=== PATIENT | male | born 2005 | race African-American/Black ===

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

== ENCOUNTER 2024-02-02 16:06 | Emergency (ER) | payer OTHER ==
[~2024-02-02] VITALS: Ht 172.7 cm; Wt 104.6 kg
[~2024-02-02 16:06] MED LIST changes: +CLAR10CA3 PO
[2024-02-02] MEDS: predniSONE 20 MG TAB PO ONE (19:15)
[2024-02-02] MEDS: ALBUTEROL SULFATE 2.5MG/0.5ML INH NEB SOLN INH ONE (19:16)
[2024-02-02] MEDS: DOXYCYCLINE HYCLATE 100MG TABLET PO ONE (20:28)
[2024-02-02] MEDS ORDERED: DOXY-323 PO (20:29)
[2024-02-02] MEDS ORDERED: VENTAER INH (20:29)
[2024-02-02] MEDS ORDERED: PRED20TA PO (20:29)
[2024-02-02 20:38] VITALS: BP 127/89; TEMP 97.7; O2SAT 97
== END 2024-02-02 20:45 | disposition home or self-care (01) ==
LOC: EDBD 16:06 → M ED 16:06
DX: J20.9 Acute bronchitis, unspecified (principal); Z79.52 Long term (current) use of systemic steroids; Z79.899 Other long term (current) drug therapy
CPT/HCPCS: 71046; 87486; 87581; 87633; 87798; 99284; J7512

== ENCOUNTER 2024-02-15 17:42 | Emergency (ER) | payer OTHER ==
[~2024-02-15] VITALS: Ht 175.3 cm; Wt 84.1 kg
[~2024-02-15 17:42] MED LIST changes: +DOXY-323 PO; +VENTAER INH
[2024-02-15] MEDS: predniSONE 20 MG TAB PO ONE (23:38)
[2024-02-15] MEDS: IPRATROPIUM 0.5MG/ALBUTEROL 2.5MG INH SOL UD 3ML (DUONEB) NEB ONE (23:50)
[2024-02-16] MEDS ORDERED: FLUT12AE2 IH (00:50)
[2024-02-16] MEDS ORDERED: VENTAER INH (00:50)
[2024-02-16] MEDS ORDERED: MEDR4PAK PO (00:50)
[2024-02-16 01:04] VITALS: BP 139/75; TEMP 97.9; O2SAT 97
== END 2024-02-16 01:05 | disposition home or self-care (01) ==
LOC: M ED 17:42
DX: J20.9 Acute bronchitis, unspecified (principal); R06.2 Wheezing; Z79.51 Long term (current) use of inhaled steroids; Z79.899 Other long term (current) drug therapy
CPT/HCPCS: 71046; 93005; 94640; 99284; J7512

== ENCOUNTER → 2024-02-22 | Outpatient (CLI) | payer OTHER ==
[~2024-02-22] MED LIST changes: +FLUT12AE2 IH; +MEDR4PAK PO
== END ==
LOC: M CARPUL 15:03
PROVIDERS: ATTEND Physician Assistant
DX: R06.2 Wheezing (principal)

== ENCOUNTER 2024-03-23 04:12 | Emergency (ER) | payer OTHER ==
[~2024-03-23] VITALS: Ht 175.3 cm; Wt 104.0 kg
[2024-03-23] MEDS: ALBUTEROL SULFATE 2.5MG/0.5ML INH NEB SOLN INH SCH (04:42)
[2024-03-23 05:11] LABS: BASO % 0.7 % (0.0-1.0); EOS # 0.7 10^3/uL (0.0-0.5); HEMATOCRIT 49.8 % (42.0-52.0); HEMOGLOBIN 16.5 g/dl (13.5-17.5); LYMPH # 1.9 10^3/uL (1.5-5.0); LYMPH % 33.3 % (24.0-44.0); MEAN CORPUSCULAR HEMOGLOBIN 29.3 pg (27.0-33.0); MEAN CORPUSCULAR HGB CONC 33.1 g/dl (32.0-36.5); MEAN CORPUSCULAR VOLUME 88.3 fl (80.0-96.0); MONO # 0.4 10^3/uL (0.0-0.8); MONO % 7.6 % (2.0-8.0); NEUTROPHILS # 2.6 10^3/uL (1.5-8.5); PLATELET COUNT, AUTOMATED 257 10^3/uL (150-450); RED BLOOD COUNT 5.64 10^6/uL (4.30-6.10); WHITE BLOOD COUNT 5.7 10^3/uL (4.0-10.0)
[2024-03-23 05:25] LABS: BLOOD UREA NITROGEN 8 MG/DL (9-23); CALCIUM LEVEL 9.3 MG/DL (8.5-10.1); CARBON DIOXIDE LEVEL 28 MMOL/L (20-31); CHLORIDE LEVEL 106 MMOL/L (98-107); CREATININE FOR GFR 1.01 MG/DL (0.70-1.30); GLUCOSE, FASTING 86 MG/DL (60-100); POTASSIUM SERUM 4.1 MMOL/L (3.5-5.1); SODIUM LEVEL 139 MMOL/L (136-145)
[2024-03-23 06:00] VITALS: O2SAT 97
[2024-03-23] MEDS ORDERED: VENTAER INH (08:18)
[2024-03-23 08:30] VITALS: BP 126/71; TEMP 96.8
== END 2024-03-23 08:46 | disposition home or self-care (01) ==
LOC: M ED 04:12
DX: J20.9 Acute bronchitis, unspecified (principal); J45.909 Unspecified asthma, uncomplicated; Z79.52 Long term (current) use of systemic steroids; Z79.899 Other long term (current) drug therapy

== ENCOUNTER → 2024-04-04 | Outpatient (CLI) | payer OTHER ==
[~2024-04-04] MED LIST changes: +METHACHOLINE KIT (6 VIAL.NEB PREMIX) INH ONE
== END ==
LOC: M CARPUL 07:08
PROVIDERS: ATTEND Physician Assistant
DX: R06.2 Wheezing (principal)
CPT/HCPCS: 94070; J7674

== ENCOUNTER 2024-05-02 10:07 | Inpatient (IN) | payer OTHER ==
[~2024-05-02] VITALS: Ht 172.7 cm; Wt 105.9 kg
[~2024-05-02 10:07] MED LIST changes: -DOXY-323 PO; +DOXY-441 PO; -METHACHOLINE KIT (6 VIAL.NEB PREMIX) INH ONE
[2024-05-02] MEDS ORDERED: IPRATROPIUM 0.5MG/ALBUTEROL 2.5MG INH SOL UD 3ML (DUONEB) NEB ONE (11:30)
[2024-05-02] MEDS: IPRATROPIUM 0.5MG/ALBUTEROL 2.5MG INH SOL UD 3ML (DUONEB) NEB SCH ×2 (11:38→15:34)
[2024-05-02] MEDS: dexAMETHasone 20MG/5ML VIAL IV ONE (11:45)
[2024-05-02] MEDS ORDERED: MAG SULF 1GM/100ML (MAG RUN) 1 GM in IV 1 EA IV STA (12:16)
[2024-05-02] MEDS: MAG SULF 1GM/100ML (MAG RUN) 1 GM in IV 1 EA IV STA (12:25)
[2024-05-02] MEDS: MAG SULF 1GM/100ML (MAG RUN) 1 GM in IV 1 EA IV SCH (12:43)
[2024-05-02 12:45] LABS: RSV AMPLIFICATION NEGATIVE (NEGATIVE)
[2024-05-02 13:03] LABS: BASO # 0.1 10^3/uL (0.0-0.2); BASO % 0.5 % (0.0-1.0); EOS # 0.4 10^3/uL (0.0-0.5); EOS % 4.3 % (0.0-3.0); HEMATOCRIT 53.8 % (42.0-52.0); HEMOGLOBIN 17.8 g/dl (13.5-17.5); LYMPH # 1.1 10^3/uL (1.5-5.0); LYMPH % 11.3 % (24.0-44.0); MEAN CORPUSCULAR HEMOGLOBIN 29.4 pg (27.0-33.0); MEAN CORPUSCULAR HGB CONC 33.1 g/dl (32.0-36.5); MEAN CORPUSCULAR VOLUME 88.8 fl (80.0-96.0); MONO # 0.7 10^3/uL (0.0-0.8); MONO % 7.2 % (2.0-8.0); NEUTROPHILS # 7.5 10^3/uL (1.5-8.5); NEUTROPHILS % 76.3 % (36.0-66.0); PLATELET COUNT, AUTOMATED 283 10^3/uL (150-450); RED BLOOD COUNT 6.06 10^6/uL (4.30-6.10); WHITE BLOOD COUNT 9.8 10^3/uL (4.0-10.0)
[2024-05-02 13:40] LABS: ABG BASE EXCESS 0.2 (-2.0-2.0); ABG HCO3 23.3 MMOL/L (22.0-26.0); ABG O2 SATURATION 92.4 % (95.0-99.0); ABG PARTIAL PRESSURE CO2 34.2 mmHg (35.0-45.0); ABG PARTIAL PRESSURE O2 60.5 mmHg (75.0-100.0); ABG STANDARD HCO3 24.5 MMOL/L. (22.0-26.0); ABG TOTAL CO2 24.3 MMOL/L (22.0-29.0); ABG pH (ARTERIAL) 7.451 UNITS (7.350-7.450)
[2024-05-02] MEDS: IPRATROPIUM 0.5MG/ALBUTEROL 2.5MG INH SOL UD 3ML (DUONEB) NEB ONE (14:08)
[2024-05-02 14:11] LABS: BLOOD UREA NITROGEN 8 MG/DL (9-23); CALCIUM LEVEL 9.7 MG/DL (8.5-10.1); CARBON DIOXIDE LEVEL 27 MMOL/L (20-31); CHLORIDE LEVEL 103 MMOL/L (98-107); CREATININE FOR GFR 1.01 MG/DL (0.70-1.30); GLUCOSE, FASTING 96 MG/DL (60-100); POTASSIUM SERUM 4.8 MMOL/L (3.5-5.1); SODIUM LEVEL 136 MMOL/L (136-145)
[2024-05-02] MEDS ORDERED: VENTAER INH (14:38)
[2024-05-02] MEDS ORDERED: HOME MED LIST COMPLETE! XX SCH (14:40)
[2024-05-02] MEDS ORDERED: MAALOX 30 ML SUSP *UDC PO PRN (15:15)
[2024-05-02] MEDS ORDERED: ACETAMINOPHEN 325 MG TAB PO PRN (15:15)
[2024-05-02] MEDS ORDERED: MOM 30ML SUSPENSION UDC PO PRN (15:15)
[2024-05-02] MEDS ORDERED: methylPREDNISolone 40MG 1ML VIAL IV SCH (16:00)
[2024-05-02 16:41] LABS: MAGNESIUM LEVEL 2.7 MG/DL (1.8-2.4)
[2024-05-02] MEDS: IPRATROPIUM 0.5MG/ALBUTEROL 2.5MG INH SOL UD 3ML (DUONEB) NEB PRN (16:58)
[2024-05-02 17:06] VITALS: BP 129/96; TEMP 97.2; O2SAT 99
[2024-05-02 19:52] VITALS: BP 125/65; TEMP 98.1; O2SAT 94
[2024-05-02] MEDS: methylPREDNISolone 40MG 1ML VIAL IV SCH (20:46)
[2024-05-02] MEDS: FLUTICASONE PROP 0.05% NASAL SPRAY 16 GM (FLONASE) NARES SCH (20:46)
[2024-05-03 04:00] VITALS: BP 139/96; TEMP 98.1; O2SAT 96
[2024-05-03] MEDS: ENOXAPARIN 40MG/0.4ML SYRINGE (J1650 PER 10MG) SC SCH (08:28)
[2024-05-03 09:08] LABS: BLOOD UREA NITROGEN 11 MG/DL (9-23); CARBON DIOXIDE LEVEL 26 MMOL/L (20-31); CHLORIDE LEVEL 103 MMOL/L (98-107); CREATININE FOR GFR 0.96 MG/DL (0.70-1.30); GLUCOSE, FASTING 110 MG/DL (60-100); MAGNESIUM LEVEL 2.3 MG/DL (1.8-2.4); POTASSIUM SERUM 4.3 MMOL/L (3.5-5.1); SODIUM LEVEL 137 MMOL/L (136-145)
[2024-05-03 09:30] VITALS: O2SAT 93
[2024-05-03 12:00] VITALS: BP 152/90; TEMP 98.6; O2SAT 92
[2024-05-03 14:32] VITALS: O2SAT 94
[2024-05-03 14:38] VITALS: O2SAT 92
[2024-05-03] MEDS ORDERED: PRED10PA PO (15:16)
[2024-05-03] MEDS ORDERED: FLUTISP NARES (15:16)
[2024-05-03] MEDS ORDERED: ALBU8.5H INH (15:19)
== END 2024-05-03 16:15 | disposition home or self-care (01) | DRG 203 ==
LOC: M ED 10:07 → M ED INP 15:15 → M MSPAV 16:58
PROVIDERS: ADMIT Student in an Organized Health Care Education/Training Program; ATTEND Student in an Organized Health Care Education/Training Program
DX: J45.901 Unspecified asthma with (acute) exacerbation (principal); Z79.52 Long term (current) use of systemic steroids; Z79.899 Other long term (current) drug therapy

== ENCOUNTER 2024-08-20 07:32 | Emergency (ER) | payer OTHER ==
[~2024-08-20] VITALS: Ht 172.7 cm; Wt 105.9 kg
[~2024-08-20 07:32] MED LIST changes: +FLUTISP NARES; +PRED10PA PO
[2024-08-20] MEDS: IBUPROFEN 600MG TAB PO ONE (09:03)
[2024-08-20] MEDS: IPRATROPIUM 0.5MG/ALBUTEROL 2.5MG INH SOL UD 3ML (DUONEB) NEB ONE ×2 (09:03→10:50)
[2024-08-20] MEDS: predniSONE 20 MG TAB PO ONE (10:50)
[2024-08-20 11:05] VITALS: BP 142/86; TEMP 99.3; O2SAT 96
[2024-08-20] MEDS ORDERED: PRED20TA PO (11:50)
== END 2024-08-20 12:00 | disposition home or self-care (01) ==
LOC: M ED 07:32
DX: J09.X2 Influenza due to identified novel influenza A virus with other respiratory manifestations (principal); J20.9 Acute bronchitis, unspecified; J45.909 Unspecified asthma, uncomplicated; Z79.52 Long term (current) use of systemic steroids; Z79.899 Other long term (current) drug therapy
CPT/HCPCS: 71045; 87486; 87581; 87633; 87798; 99283; J7512

== ENCOUNTER 2024-11-05 23:55 | Emergency (ER) | payer OTHER ==
[~2024-11-05] VITALS: Ht 172.7 cm; Wt 102.4 kg
[2024-11-06 00:17] VITALS: BP 152/84; TEMP 99.2; O2SAT 91
== END 2024-11-06 01:30 | disposition left against medical advice (07) ==
LOC: EDBD 23:55 → M ED 23:55
DX: Z53.21 Procedure and treatment not carried out due to patient leaving prior to being seen by health care provider (principal)

== ENCOUNTER 2025-07-08 11:18 | Emergency (ER) | payer OTHER ==
[~2025-07-08] VITALS: Ht 172.7 cm; Wt 100.8 kg
[2025-07-08] MEDS ORDERED: MUCI600T31 PO (11:28)
[2025-07-08] MEDS: IPRATROPIUM 0.5 MG/ALBUTEROL 2.5 MG INH SOL UD 3 ML NEB ONE ×2 (11:43→12:35)
[2025-07-08] MEDS: MAG SULF 1GM/100ML (MAG RUN) 1 GM in IV 1 EA IV ONE (12:35)
[2025-07-08 13:35] VITALS: BP 124/68; TEMP 98; O2SAT 98
[2025-07-08] MEDS: ALBUTEROL SULFATE 2.5 MG/0.5 ML INH CONCENTRATE NEB SOLN NEB ONE (13:38)
[2025-07-08] MEDS ORDERED: IPRA0.00 INH (13:57)
[2025-07-08] MEDS ORDERED: NEBU1EAC80 MC (13:57)
[2025-07-08] MEDS ORDERED: VENTAER INH (13:57)
== END 2025-07-08 14:11 | disposition home or self-care (01) ==
LOC: M ED 11:18
DX: B34.8 Other viral infections of unspecified site (principal); J45.901 Unspecified asthma with (acute) exacerbation; F17.200 Nicotine dependence, unspecified, uncomplicated; Z79.52 Long term (current) use of systemic steroids; Z79.899 Other long term (current) drug therapy
CPT/HCPCS: 71046; 87486; 87581; 87633; 87798; 96365; 96366; 96375; 99284; J1100; J3475